=== PATIENT | male | born 1965 | race Caucasian/White ===

== ENCOUNTER 2018-07-06 13:09 | Emergency (ER) | payer BC ==
[2018-07-06] MEDS ORDERED: SODIUM CHLORIDE 0.9% 1,000 ML IV STA (13:24)
[2018-07-06 13:57] LABS: Appearance,Urine Clear (Clear); Bilirubin,Urine Negative (Negative); Blood,Urine Negative (Negative); Color,Urine Yellow; Glucose,Urine (UA) Negative (Negative); Ketones,Urine Negative (Negative); Leukocyte Esterase,Urine Negative (Negative); Nitrite,Urine Negative (Negative); PH, Urine 5.5 (5.0-8.0); Protein,Urine Negative (Negative); Specific Gravity,Urine 1.017 (1.001-1.035); Urobilinogen,Urine <2.0 mg/dL (<2.0)
[2018-07-06 14:00] LABS: Basophils # (A) 0.1 k/uL (0-0.2); Basophils % (A) 1 %; Eosinophils # (A) 0.2 k/uL (0-0.7); Eosinophils % (A) 2 %; HCT 45.7 % (39.0-53.0); HGB 15.4 gm/dL (13.0-17.5); Lymphocytes % (A) 14 %; MCH 30.2 pg (25.0-35.0); MCHC 33.7 g/dL (31.0-37.0); MCV 89.5 fL (80.0-100.0); Mean Platelet Volume 7.3; Monocytes # (A) 0.4 k/uL (0-1.0); Monocytes % (A) 5 %; Neutrophils # (A) 5.9 k/uL (1.3-7.7); Neutrophils % (A) 77 %; Platelet Count 246 k/uL (150-450); WBC 7.7 k/uL (3.8-10.6)
--- NOTE | 2018-07-06 14:02 | ED ---
General Adult HPI - General Chief complaint: Abdominal Pain Stated complaint: diverticulitis Time Seen by Provider: 07/06/18 13:24 Source: patient, RN notes reviewed, old records reviewed Mode of arrival: ambulatory Limitations: no limitations - History of Present Illness Initial comments: 53-year-old male patient past medical history of diverticulitis presents to ED with abdominal discomfort that he states feels similar to his diverticulitis of the past. Patient reports that he has symptoms. As well as left lower quadrant abdominal discomfort been going on for approximately one week. Patient denies any nausea vomiting but does report some diarrhea. Patient denies any other complaints present chest pain shortness of breath fevers chills dysuria. Systemic: Pt denies fatigue, myalgia, fever/chills, rash. Pt denies weakness, night sweats, weight loss. Neuro: Pt denies headache, visual disturbances, syncope or pre-syncope. HEENT: Pt denies ocular discharge or irritation, otalgia, rhinorrhea, pharyngitis or notable lymphadenopathy. Cardiopulmonary: Pt denies chest pain, SOB, heart palpitations, dyspnea on exertion. Abdominal/GI: Pt denies n/v. : Pt denies dysuria, burning w/ urination, frequency/urgency. Denies new onset urinary or bowel incontinence. MSK: Pt denies myalgia, loss of strength or function in extremities. Neuro: Pt denies new onset weakness, paresthesias. - Related Data Home Medications Medication Instructions Recorded Confirmed Multivitamin [Multivitamins Adult 1 tab PO DAILY 10/28/07/06/18 Gummies] Turmeric Root Extract [Turmeric] 500 mg PO DAILY 07/06/18 07/06/18 Previous Rx's Medication Instructions Recorded Amoxicillin/Potassium Clav 1 each PO Q12HR 14 Days #28 tab 07/06/18 [Augmentin 875-125 Tablet] Allergies Allergy/AdvReac Type Severity Reaction Status Date / Time lactose Allergy Unknown Verified 07/06/18 13:31 Review of Systems ROS Statement: Those systems with pertinent positive or pertinent negative responses have been documented in the HPI. ROS Other: All systems not noted in ROS Statement are negative. Past Medical History Past Medical History: No Reported History Additional Past Medical History / Comment(s): diverticulitis History of Any Multi-Drug Resistant Organisms: None Reported Past Surgical History: Hernia Repair Past Psychological History: No Psychological Hx Reported Smoking Status: Former smoker Past Alcohol Use History: Occasional Past Drug Use History: None Reported General Exam - General Exam Comments Initial Comments: Constitutional: NAD, AOX3, Pt has pleasant affect. HEENT: NC/AT, trachea midline, neck supple, no lymphadenopathy. Posterior pharynx non erythematous, without exudates. External ears appear normal, without discharge. Mucous membranes moist. Eyes PERRLA, EOM intact. There is no scleral icterus. No pallor noted. Cardiopulmonary: RRR, no murmurs, rubs or gallops, no JVD noted. Lungs CTAB in anterior and posterior irvin. No peripheral edema. Abdominal exam: Abdomen soft and non-distended. Abdomen non-tender to palpation in all 4 quadrants. No guarding or rigidity. Bowel sounds active in LLQ. No hepatosplenomegaly. No ecchymosis Neuro: CN II-XII grossly intact. No nuchal rigidity. MSK: No posterior calf tenderness bilaterally, homans sign negative bilaterally. Posterior tibialis and radial pulse +2 bilaterally. Sensation intact in upper and lower extremities. Full active ROM in upper and lower extremities, 5/5 stregnth. Limitations: no limitations Course Vital Signs 07/06/18 13:20 Temperature 98.2 F Pulse Rate 73 Respiratory 18 Rate Blood Pressure 105/81 O2 Sat by Pulse 98 Oximetry Medical Decision Making - Medical Decision Making 53-year-old male patient past medical history of diverticulitis presents to ED with abdominal discomfort that he states feels similar to his diverticulitis of the past. Patient reports that he has symptoms. As well as left lower quadrant abdominal discomfort been going on for approximately one week. Patient denies any nausea vomiting but does report some diarrhea. Patient denies any other complaints present chest pain shortness of breath fevers chills dysuria. Patient vital signs stable, afebrile. Physical exam displayed nontender abdomen. No guarding or rigidity. Laboratory investigations reveal nonpassive CBC, CMP. CT abdomen and pelvis displayed uncomplicated diverticulitis. Patient will be discharged with by mouth antibiotics and close outpatient follow-up with primary care provider. Patient follow with primary care provider tomorrow. Patient return to ER if condition worsens in any way. Case discussed with Dr. Suarez. - Lab Data Result diagrams: 07/06/18 13:30 07/06/18 13:30 Lab Results 07/06/18 07/06/18 07/06/18 Range/Units 13:30 13:30 13:30 WBC 7.7 (3.8-10.6) k/uL RBC 5.10 (4.30-5.90) m/uL Hgb 15.4 (13.0-17.5) gm/dL Hct 45.7 (39.0-53.0) % MCV 89.5 (80.0-100.0) fL MCH 30.2 (25.0-35.0) pg MCHC 33.7 (31.0-37.0) g/dL RDW 13.0 (11.5-15.5) % Plt Count 246 (150-450) k/uL Neutrophils % 77 % Lymphocytes % 14 % Monocytes % 5 % Eosinophils % 2 % Basophils % 1 % Neutrophils # 5.9 (1.3-7.7) k/uL Lymphocytes # 1.0 (1.0-4.8) k/uL Monocytes # 0.4 (0-1.0) k/uL Eosinophils # 0.2 (0-0.7) k/uL Basophils # 0.1 (0-0.2) k/uL Sodium 140 (137-145) mmol/L Potassium 4.4 (3.5-5.1) mmol/L Chloride 104 (98-107) mmol/L Carbon Dioxide 26 (22-30) mmol/L Anion Gap 10 mmol/L BUN 12 (9-20) mg/dL Creatinine 0.73 (0.66-1.25) mg/dL Est GFR (CKD-EPI)AfAm >90 (>60 ml/min/1.73 sqM) Est GFR (CKD-EPI)NonAf >90 (>60 ml/min/1.73 sqM) Glucose 69 L (74-99) mg/dL Plasma Lactic Acid Gilmer 1.2 (0.7-2.0) mmol/L Calcium 9.7 (8.4-10.2) mg/dL Total Bilirubin 0.7 (0.2-1.3) mg/dL AST 32 (17-59) U/L ALT 29 (21-72) U/L Alkaline Phosphatase 67 (38-126) U/L Total Protein 8.5 H (6.3-8.2) g/dL Albumin 5.1 H (3.5-5.0) g/dL Lipase 133 (23-300) U/L Urine Color Urine Appearance (Clear) Urine pH (5.0-8.0) Ur Specific Garrison (1.001-1.035) Urine Protein (Negative) Urine Glucose (UA) (Negative) Urine Ketones (Negative) Urine Blood (Negative) Urine Nitrite (Negative) Urine Bilirubin (Negative) Urine Urobilinogen (<2.0) mg/dL Ur Leukocyte Esterase (Negative) 07/06/18 Range/Units 13:30 WBC (3.8-10.6) k/uL RBC (4.30-5.90) m/uL Hgb (13.0-17.5) gm/dL Hct (39.0-53.0) % MCV (80.0-100.0) fL MCH (25.0-35.0) pg MCHC (31.0-37.0) g/dL RDW (11.5-15.5) % Plt Count (150-450) k/uL Neutrophils % % Lymphocytes % % Monocytes % % Eosinophils % % Basophils % % Neutrophils # (1.3-7.7) k/uL Lymphocytes # (1.0-4.8) k/uL Monocytes # (0-1.0) k/uL Eosinophils # (0-0.7) k/uL Basophils # (0-0.2) k/uL Sodium (137-145) mmol/L Potassium (3.5-5.1) mmol/L Chloride (98-107) mmol/L Carbon Dioxide (22-30) mmol/L Anion Gap mmol/L BUN (9-20) mg/dL Creatinine (0.66-1.25) mg/dL Est GFR (CKD-EPI)AfAm (>60 ml/min/1.73 sqM) Est GFR (CKD-EPI)NonAf (>60 ml/min/1.73 sqM) Glucose (74-99) mg/dL Plasma Lactic Acid Gilmer (0.7-2.0) mmol/L Calcium (8.4-10.2) mg/dL Total Bilirubin (0.2-1.3) mg/dL AST (17-59) U/L ALT (21-72) U/L Alkaline Phosphatase (38-126) U/L Total Protein (6.3-8.2) g/dL Albumin (3.5-5.0) g/dL Lipase (23-300) U/L Urine Color Yellow Urine Appearance Clear (Clear) Urine pH 5.5 (5.0-8.0) Ur Specific Garrison 1.017 (1.001-1.035) Urine Protein Negative (Negative) Urine Glucose (UA) Negative (Negative) Urine Ketones Negative (Negative) Urine Blood Negative (Negative) Urine Nitrite Negative (Negative) Urine Bilirubin Negative (Negative) Urine Urobilinogen <2.0 (<2.0) mg/dL Ur Leukocyte Esterase Negative (Negative) Disposition Clinical Impression: Diverticulitis Disposition: HOME SELF-CARE Condition: Stable Instructions (If sedation given, give patient instructions): Diverticulitis (ED) Additional Instructions: Patient to adhere to previously discussed treatment plan and will take medication(s) as directed. Patient to follow up with PCP in 1-2 days. Patient to return to ED if symptoms do not improve. Please take antibiotics as prescribed. Follow up with primary care provider tomorrow. Return to ER if condition worsens. Prescriptions: Amoxicillin/Potassium Clav [Augmentin 875-125 Tablet] 1 each PO Q12HR 14 Days #28 tab Is patient prescribed a controlled substance at d/c from ED?: No Referrals: Greta Arizmendi MD [Primary Care Provider] - 1-2 days
[2018-07-06 14:06] LABS: ALT 29 U/L (21-72); AST 32 U/L (17-59); Albumin 5.1 g/dL (3.5-5.0); Alkaline Phosphatase 67 U/L (38-126); Anion Gap 10 mmol/L; Blood Urea Nitrogen 12 mg/dL (9-20); Calcium 9.7 mg/dL (8.4-10.2); Carbon Dioxide 26 mmol/L (22-30); Chloride 104 mmol/L (98-107); Glucose 69 mg/dL (74-99); Lipase 133 U/L (23-300); Sodium 140 mmol/L (137-145); Total Bilirubin 0.7 mg/dL (0.2-1.3); Total Protein 8.5 g/dL (6.3-8.2)
[2018-07-06 14:16] LABS: Potassium 4.4 mmol/L (3.5-5.1)
--- NOTE | 2018-07-06 14:29 | CT ---
EXAMINATION TYPE: CT abdomen pelvis w con DATE OF EXAM: 07/06/2018 COMPARISON: 10/29/2015 HISTORY: 53-year-old male lower pelvic pain and pressure from bellybutton down to the groin, abdomina l pain TECHNIQUE: Contiguous axial scanning of the abdomen and pelvis following administration of 100 ml Iso rigo 300 IV contrast. Delayed images through the kidneys and coronal/sagittal reconstructions perform ed. CT DLP: 1052.7 mGycm Automated exposure control for dose reduction was used. FINDINGS: Heart normal size without pericardial effusion. Lung bases clear without pleural effusion. Small hiatal hernia. No focal liver lesion or biliary ductal dilatation. Portal venous system is patent. There is layering gravel within the gallbladder. No abnormal gallbladder distention. Adrenal glands, kidneys, spleen, pancreas appear within normal limits. No dilated small bowel, free fluid, or free air. No mesenteric or retroperitoneal lymphadenopathy. Some scattered prominent mid and left-sided mesenteric lymph nodes measuring up to 9 mm nonspecific, likely reactive/post inflammatory. Normal appendix. Cecum is high riding. Mild to moderate stool burden. Left hemicolon diverticulosis. Moderate circumferential wall thickening of the mid to distal sigmoid colon where most extensive dive rticular changes present. Surrounding pericolonic inflammatory fat stranding. Surgical material along the right inguinal region may correspond to prior hernia repair. Partial distention of the bladder. Central prostatic calcifications. Pelvic phleboliths. No abnormal fluid collection in the pelvis or pelvic lymphadenopathy. Bones: Moderate multilevel degenerative disc disease throughout the lumbar spine. IMPRESSION: 1. LEFT-SIDED COLONIC DIVERTICULOSIS MOST EXTENSIVE WITHIN THE SIGMOID COLON WITH FINDINGS COMPATIBLE WITH ACUTE DIVERTICULITIS ALONG THE MID TO DISTAL SIGMOID. THERE IS MILD TO MODERATE SURROUNDING INF LAMMATION WITHOUT ABSCESS OR FREE AIR. DIRECT VISUALIZATION AFTER SUCCESSFUL TREATMENT. 2. SMALL HIATAL HERNIA.
[2018-07-06 15:08] VITALS: BP 126/89; PULSE 62; RESP 16; TEMP 97.5
== END 2018-07-06 15:05 | disposition home or self-care (01) ==
LOC: EC 13:09
DX: K57.92 Diverticulitis of intestine, part unspecified, without perforation or abscess without bleeding (principal); Z87.891 Personal history of nicotine dependence; Z79.899 Other long term (current) drug therapy; Z91.011 Allergy to milk products
CPT/HCPCS: 99284; 96360; 36415; 80053; 83605; 83690; 85025; 81003; 74177; Q9967

== ENCOUNTER 2020-02-23 11:49 | Emergency (ER) | payer BC ==
[2020-02-23] MEDS ORDERED: KETOROLAC 15 MG/ML 1 ML VIAL IVP STA (12:08)
[2020-02-23] MEDS ORDERED: DIPH,PERTUS(ACELL)TETVAC-LF 0.5 ML VIAL IM ONE (12:08)
[2020-02-23] MEDS ORDERED: SODIUM CHLORIDE 0.9% 1,000 ML IV ONE (12:08)
[2020-02-23] MEDS ORDERED: HYDROmorphone 0.5 MG/0.5 ML SYRINGE IVP STA (12:08)
[2020-02-23 12:28] LABS: Basophils % (A) 0 %; Eosinophils # (A) 0.2 k/uL (0-0.7); Eosinophils % (A) 2 %; HCT 44.4 % (39.0-53.0); HGB 14.5 gm/dL (13.0-17.5); Lymphocytes # (A) 1.4 k/uL (1.0-4.8); Lymphocytes % (A) 22 %; MCHC 32.7 g/dL (31.0-37.0); MCV 88.7 fL (80.0-100.0); Monocytes # (A) 0.4 k/uL (0-1.0); Monocytes % (A) 6 %; Neutrophils # (A) 4.5 k/uL (1.3-7.7); Neutrophils % (A) 68 %; Platelet Count 330 k/uL (150-450); RBC 5.01 m/uL (4.30-5.90); RDW 13.3 % (11.5-15.5); WBC 6.6 k/uL (3.8-10.6)
[2020-02-23 12:36] LABS: Albumin 4.7 g/dL (3.5-5.0); Calcium 9.4 mg/dL (8.4-10.2); Potassium 4.1 mmol/L (3.5-5.1); Total Bilirubin 0.7 mg/dL (0.2-1.3); Total Protein 7.8 g/dL (6.3-8.2)
[2020-02-23 12:37] LABS: Prothrombin Time 10.5 sec (9.0-12.0)
--- NOTE | 2020-02-23 13:14 | ED ---
General Adult HPI - General Chief complaint: Trauma Stated complaint: Fall 5-10 ft, Elbow pain Time Seen by Provider: 02/23/20 12:04 Source: patient, RN notes reviewed, old records reviewed Mode of arrival: wheelchair Limitations: no limitations - History of Present Illness Initial comments: 55-year-old male presents status post fall with chief complaint of right elbow pain. Patient fell from a ladder, approximately 5-10 feet. He denies head or neck trauma. Denies loss consciousness. He complains predominantly of right elbow pain with an associated abrasion. He also has some right hip pain and low back pain associated with the fall. This occurred just prior to arrival. He is otherwise healthy, not on anticoagulation. No abdominal pain. No chest pain. - Related Data Home Medications Medication Instructions Recorded Confirmed Multivitamin [Multivitamins Adult 1 tab PO DAILY 10/29/15 02/23/20 Gummies] Allergies Allergy/AdvReac Type Severity Reaction Status Date / Time lactose Allergy Unknown Verified 02/23/20 13:29 Review of Systems ROS Statement: Those systems with pertinent positive or pertinent negative responses have been documented in the HPI. ROS Other: All systems not noted in ROS Statement are negative. Past Medical History Past Medical History: No Reported History Additional Past Medical History / Comment(s): diverticulitis History of Any Multi-Drug Resistant Organisms: None Reported Past Surgical History: Hernia Repair Past Psychological History: No Psychological Hx Reported Smoking Status: Never smoker Past Alcohol Use History: Occasional Past Drug Use History: None Reported General Exam Limitations: no limitations General appearance: alert, in no apparent distress Head exam: Present: atraumatic, normocephalic Eye exam: Present: normal appearance, PERRL ENT exam: Present: normal exam Neck exam: Present: normal inspection. Absent: tenderness, meningismus Respiratory exam: Present: normal lung sounds bilaterally. Absent: respiratory distress, wheezes, rales Cardiovascular Exam: Present: regular rate, normal rhythm GI/Abdominal exam: Present: soft. Absent: distended, tenderness, guarding, rebound Extremities exam: Present: other (Deformity to the right elbow with abrasion. No laceration. Distal pulses intact. Sensation exam not possible given the patient's severity of pain.) Back exam: Present: normal inspection, full ROM. Absent: tenderness, paraspinal tenderness, vertebral tenderness Neurological exam: Present: alert, oriented X3, CN II-XII intact Psychiatric exam: Present: normal affect, normal mood Skin exam: Present: warm, dry, abrasion (Right elbow) Course Vital Signs 02/23/20 02/23/20 02/23/20 11:53 12:11 12:33 Temperature 98.9 F Pulse Rate 53 L 60 Respiratory 18 18 Rate Blood Pressure 96/74 107/75 115/78 O2 Sat by Pulse 99 100 Oximetry - Reevaluation(s) Reevaluation #1: 02/23/20 [id number] Case discussed with Mattie villatoro for orthopedics, recommends consult with [facility]. Reevaluation #2: 02/23/20 14:[address] Garcia who does recommend transfer for urgent orthopedic surgical evaluation. Recommends posterior splint. 02/23/20 14:24 Procedures - Orthopedic Splinting/Casting Injury #1 Side: right Upper Extremity Injury Location: elbow Upper Extremity Immobilizer: posterior splint Additional Comments: Patient has normal sensation, normal distal pulses, normal motor exam. Medical Decision Making - Medical Decision Making 55-year-old male with fall from ladder with chief complaint of right elbow pain and right hip pain. X-rays of the elbow show a displaced fracture through the proximal ulna. This is closed. There is no overlying abrasion but no laceration. Additionally there is superior pubic rami fracture on the right. Patient is hemodynamically stable. I discussed case both with Mattie villatoro for orthopedics at this institution and Dr. Garcia at [facility]. Ultimately the patient will be transferred for urgent orthopedic evaluation. Case discussed with the ER physician Dr. Johnson at [facility] - Lab Data Result diagrams: 02/23/20 12:13 02/23/20 12:13 Lab Results 02/23/20 02/23/20 02/23/20 Range/Units 12:13 12:13 12:13 WBC 6.6 (3.8-10.6) k/uL RBC 5.01 (4.30-5.90) m/uL Hgb 14.5 (13.0-17.5) gm/dL Hct 44.4 (39.0-53.0) % MCV 88.7 (80.0-100.0) fL MCH 29.0 (25.0-35.0) pg MCHC 32.7 (31.0-37.0) g/dL RDW 13.3 (11.5-15.5) % Plt Count 330 (150-450) k/uL MPV 7.0 Neutrophils % 68 % Lymphocytes % 22 % Monocytes % 6 % Eosinophils % 2 % Basophils % 0 % Neutrophils # 4.5 (1.3-7.7) k/uL Lymphocytes # 1.4 (1.0-4.8) k/uL Monocytes # 0.4 (0-1.0) k/uL Eosinophils # 0.2 (0-0.7) k/uL Basophils # 0.0 (0-0.2) k/uL PT 10.5 (9.0-12.0) sec INR 1.0 (<1.2) APTT 22.0 (22.0-30.0) sec Sodium 137 (137-145) mmol/L Potassium 4.1 (3.5-5.1) mmol/L Chloride 104 (98-107) mmol/L Carbon Dioxide 23 (22-30) mmol/L Anion Gap 10 mmol/L BUN 10 (9-20) mg/dL Creatinine 1.09 (0.66-1.25) mg/dL Est GFR (CKD-EPI)AfAm 89 (>60 ml/min/1.73 sqM) Est GFR (CKD-EPI)NonAf 77 (>60 ml/min/1.73 sqM) Glucose 143 H (74-99) mg/dL Calcium 9.4 (8.4-10.2) mg/dL Total Bilirubin 0.7 (0.2-1.3) mg/dL AST 30 (17-59) U/L ALT 24 (4-49) U/L Alkaline Phosphatase 75 (38-126) U/L Total Protein 7.8 (6.3-8.2) g/dL Albumin 4.7 (3.5-5.0) g/dL Disposition Clinical Impression: Ulnar fracture, Fracture of superior pubic ramus Disposition: OTHER INSTITUTION NOT DEFINED Condition: Stable Is patient prescribed a controlled substance at d/c from ED?: No Referrals: Greta Arizmendi MD [Primary Care Provider] - 1-2 days Time of Disposition: 14:19 - Out of Hospital Transfer - Req. Specs Out of Hospital Transfer - Requested Specifics: Other Emergency Center (Transferred to [facility])
--- NOTE | 2020-02-23 13:43 | XR ---
EXAMINATION TYPE: XR elbow complete RT DATE OF EXAM: 02/23/2020 COMPARISON: NONE HISTORY: Pain FINDINGS: Three views of the elbow demonstrate displaced fracture of the proximal ulna with significant displac ement. Soft tissue edema noted. Remaining osseous structures intact. IMPRESSION: 1. Displaced proximal ulnar fracture.
--- NOTE | 2020-02-23 13:44 | XR ---
EXAM TYPE: LUMBAR SPINE X RAY SERIES COMPARISON: NONE HISTORY: Pain TECHNIQUE: 3 views are submitted. FINDINGS: Alignment is anatomic. The pedicles are intact. The transverse processes are intact. There is mult ilevel hypertrophic and degenerative disc disease with facet arthropathy. Retrolisthesis of L3 on L4. Resolution somewhat limited. No obvious compression deformities. Pedicles grossly intact. Surgical c lips in the pelvis are noted. SI joints are symmetric. IMPRESSION: 1. Multilevel degenerative disc disease.
--- NOTE | 2020-02-23 13:52 | XR ---
EXAMINATION TYPE: XR Hip RT and AP Pelvis DATE OF EXAM: 02/23/2020 COMPARISON: NONE HISTORY: Pain TECHNIQUE: A single AP view of the pelvis is obtained. Two views of the right hip are obtained. FINDINGS: There is slight deformity of the right superior pubic ramus. The hip and sacroiliac joint s appear symmetric and unremarkable. The overlying soft tissue appears unremarkable. Two views of right hip obtained. No focal lytic or sclerotic lesion seen in the proximal right femur. The overlying soft tissue is unremarkable. Mild hypertrophic change of the abdomen. Postoperative changes are seen in the pelvis. IMPRESSION: IMPRESSION: 1. Findings demonstrating a slight deformity involving the right superior pubic ramus. Recommend CT s can of the pelvis.
[2020-02-23] MEDS ORDERED: HYDROmorphone 1 MG/ML 1 ML SYRINGE IVP STA (15:10)
[2020-02-23 15:49] VITALS: BP 116/78; PULSE 55; RESP 20; TEMP 98.6
== END 2020-02-23 15:48 | disposition other institution (70) ==
LOC: EC 11:49
DX: S52.001A Unspecified fracture of upper end of right ulna, initial encounter for closed fracture (principal); S32.511A Fracture of superior rim of right pubis, initial encounter for closed fracture; Z23 Encounter for immunization; W11.XXXA Fall on and from ladder, initial encounter; Z91.048 Other nonmedicinal substance allergy status
CPT/HCPCS: 99285; 90471; 96374; 96375; 96376; 96361; 29125; 36415; 80053; 85025; 85610; 85730; 72100; 73502; 73080; 90715; J1170 ×2; J1885

== ENCOUNTER 2020-08-27 11:10 | Emergency (ER) | payer BC ==
[2020-08-27] MEDS ORDERED: SODIUM CHLORIDE 0.9% 1,000 ML IV STA (11:53)
[2020-08-27 12:22] LABS: Basophils % (A) 0 %; Eosinophils # (A) 0.1 k/uL (0-0.7); Eosinophils % (A) 1 %; HCT 42.2 % (39.0-53.0); HGB 13.8 gm/dL (13.0-17.5); Lymphocytes # (A) 0.9 k/uL (1.0-4.8); Lymphocytes % (A) 13 %; MCH 28.6 pg (25.0-35.0); MCHC 32.8 g/dL (31.0-37.0); MCV 87.3 fL (80.0-100.0); Mean Platelet Volume 7.5; Monocytes # (A) 0.4 k/uL (0-1.0); Monocytes % (A) 6 %; Neutrophils # (A) 5.2 k/uL (1.3-7.7); Neutrophils % (A) 79 %; Platelet Count 226 k/uL (150-450); RBC 4.83 m/uL (4.30-5.90); RDW 13.6 % (11.5-15.5); WBC 6.6 k/uL (3.8-10.6)
[2020-08-27 12:28] LABS: ALT 22 U/L (4-49); AST 28 U/L (17-59); African American GFR (CKD) >90 (>60 ml/min/1.73 sqM); Albumin 4.3 g/dL (3.5-5.0); Alkaline Phosphatase 80 U/L (38-126); Anion Gap 9 mmol/L; Blood Urea Nitrogen 14 mg/dL (9-20); Carbon Dioxide 23 mmol/L (22-30); Chloride 106 mmol/L (98-107); Glucose 89 mg/dL (74-99); Lipase 109 U/L (23-300); Non-African American GFR(CKD) >90 (>60 ml/min/1.73 sqM); Potassium 4.1 mmol/L (3.5-5.1); Sodium 138 mmol/L (137-145); Total Protein 7.1 g/dL (6.3-8.2)
--- NOTE | 2020-08-27 12:28 | ED ---
General Adult HPI - General Chief complaint: Abdominal Pain Stated complaint: diverticulitis Time Seen by Provider: 08/27/20 11:53 Source: patient Mode of arrival: ambulatory Limitations: no limitations - History of Present Illness Initial comments: Dictation was produced using Key[employer] dictation software. please excuse any grammatical, word or spelling errors. Chief Complaint: 55-year-old male with frequent recurrence of diverticulitis presents with suprapubic abdominal pain. History of Present Illness: 5-year-old male he does not have any significant comorbidities. He has had diverticulitis on multiple occasions in the past. Patient states that 2 weeks ago he just came off of diverticulitis antibiotics. He states his symptoms cleared up from then however over the last couple days ago his symptoms came back. She states he was on antibiotics for approximately one month. Patient with diarrhea this time though some bloody. Denies any constitutional symptoms. States that his abdominal pain is to the suprapubic area. Denies any radiation of symptoms. Also has feelings as though his hiatal hernia symptoms are acting up. He states that he is having some trouble swallowing. The ROS documented in this emergency department record has been reviewed and confirmed by me. Those systems with pertinent positive or negative responses have been documented in the HPI. All other systems are other negative and/or noncontributory. PHYSICAL EXAM: General Impression: Alert and oriented x3, not in acute distress HEENT: Normocephalic atraumatic, extra-ocular movements intact, pupils equal and reactive to light bilaterally, mucous membranes moist. Cardiovascular: Heart regular rate and rhythm Chest: Able to complete full sentences, no retractions, no tachypnea Abdomen: abdomen soft, tenderness to palpation in the suprapubic area, non- distended, no organomegaly Musculoskeletal: Pulses present and equal in all extremities, no peripheral edema Motor: no focal deficits noted Neurological: CN II-XII grossly intact, no focal motor or sensory deficits noted Skin: Intact with no visualized rashes Psych: Normal affect and mood ED course: 55-year-old male with frequent recurrent history of diverticulitis. He just completed a course of antibiotics to treat diverticulitis. Shortly after he was symptom-free however his pain really return. Vital Signs upon arrival are within acceptable limits. Laboratory evaluation obtained. CBC, metabolic panel is unremarkable. Computed tomography scan of the abdomen and pelvis shows acute diverticulitis. Clinical presentation consistent with recurrent diverticulitis. Patient reevaluated bedside at 1:40 PM found to be stable medical condition. His pain is controlled. He is able to tolerate oral intake. Patient be prescribed Augmentin for 14 days. Advised follow-up with PCP. - Related Data Home Medications Medication Instructions Recorded Confirmed Multivitamin [Multivitamins Adult 1 tab PO DAILY 10/29/15 02/23/20 Gummies] Previous Rx's Medication Instructions Recorded Amoxic-Pot Clav 875-125Mg 1 tab PO Q8H 14 Days #42 tab 08/27/20 [Augmentin 875-125] Allergies Allergy/AdvReac Type Severity Reaction Status Date / Time lactose Allergy Unknown Verified 08/27/20 11:21 Review of Systems ROS Statement: Those systems with pertinent positive or pertinent negative responses have been documented in the HPI. ROS Other: All systems not noted in ROS Statement are negative. Past Medical History Past Medical History: No Reported History Additional Past Medical History / Comment(s): diverticulitis History of Any Multi-Drug Resistant Organisms: None Reported Past Surgical History: Hernia Repair Additional Past Surgical History / Comment(s): elbow Past Psychological History: No Psychological Hx Reported Smoking Status: Never smoker Past Alcohol Use History: Occasional Past Drug Use History: None Reported General Exam Limitations: no limitations Course Vital Signs 08/27/20 08/27/20 11:18 13:01 Temperature 98.4 F Pulse Rate 100 79 Respiratory 18 19 Rate Blood Pressure 122/85 129/89 O2 Sat by Pulse 97 98 Oximetry Medical Decision Making - Lab Data Result diagrams: 08/27/20 12:09 08/27/20 12:09 Lab Results 08/27/20 08/27/20 Range/Units 12:09 12:09 WBC 6.6 (3.8-10.6) k/uL RBC 4.83 (4.30-5.90) m/uL Hgb 13.8 (13.0-17.5) gm/dL Hct 42.2 (39.0-53.0) % MCV 87.3 (80.0-100.0) fL MCH 28.6 (25.0-35.0) pg MCHC 32.8 (31.0-37.0) g/dL RDW 13.6 (11.5-15.5) % Plt Count 226 (150-450) k/uL MPV 7.5 Neutrophils % 79 % Lymphocytes % 13 % Monocytes % 6 % Eosinophils % 1 % Basophils % 0 % Neutrophils # 5.2 (1.3-7.7) k/uL Lymphocytes # 0.9 L (1.0-4.8) k/uL Monocytes # 0.4 (0-1.0) k/uL Eosinophils # 0.1 (0-0.7) k/uL Basophils # 0.0 (0-0.2) k/uL Sodium 138 (137-145) mmol/L Potassium 4.1 (3.5-5.1) mmol/L Chloride 106 (98-107) mmol/L Carbon Dioxide 23 (22-30) mmol/L Anion Gap 9 mmol/L BUN 14 (9-20) mg/dL Creatinine 0.80 (0.66-1.25) mg/dL Est GFR (CKD-EPI)AfAm >90 (>60 ml/min/1.73 sqM) Est GFR (CKD-EPI)NonAf >90 (>60 ml/min/1.73 sqM) Glucose 89 (74-99) mg/dL Calcium 9.0 (8.4-10.2) mg/dL Total Bilirubin 1.0 (0.2-1.3) mg/dL AST 28 (17-59) U/L ALT 22 (4-49) U/L Alkaline Phosphatase 80 (38-126) U/L Total Protein 7.1 (6.3-8.2) g/dL Albumin 4.3 (3.5-5.0) g/dL Lipase 109 (23-300) U/L Disposition Clinical Impression: Diverticulitis Disposition: HOME SELF-CARE Condition: Good Instructions (If sedation given, give patient instructions): Diverticulitis (ED) Prescriptions: Amoxic-Pot Clav 875-125Mg [Augmentin 875-125] 1 tab PO Q8H 14 Days #42 tab Is patient prescribed a controlled substance at d/c from ED?: No Referrals: Greta Arizmendi MD [Primary Care Provider] - 1-2 days
[2020-08-27 13:02] VITALS: PULSE 79
--- NOTE | 2020-08-27 13:16 | CT ---
EXAMINATION TYPE: CT abdomen pelvis w con DATE OF EXAM: 08/27/2020 COMPARISON: 07/06/2018 HISTORY: 55-year-old male bilateral pelvic pain, epigastric pain. Suspect diverticulitis. TECHNIQUE: Contiguous axial scanning of the abdomen and pelvis following administration of 100 ml Iso rigo 300 IV contrast. Delayed images through the kidneys and coronal/sagittal reconstructions perform ed. CT DLP: 1281.2 mGycm Automated exposure control for dose reduction was used. FINDINGS: Heart normal size without pericardial effusion. Some mild dependent atelectasis at the posterior lung bases without pleural effusion. Small hiatal hernia. No focal liver lesion or biliary ductal dilatation. Portal venous system is patent. Some layering gravel in the gallbladder. No abnormal gallbladder distention. Adrenal glands, kidneys, spleen, and pancreas within normal limits. No dilated small bowel, free fluid, or free air. Scattered nonenlarged mesenteric lymph nodes in the mid and lower abdomen. Stable simple cyst and right lower quadrant right inguinal mesh repair. Normal appendix. Left-sided colonic diverticulosis, extensive in the sigmoid colon now with moderate pericolonic fat stranding along the mid sigmoid colon and corresponding circumferential wall thickeni ng. Trabeculated appearance to the bladder with the right posterior bladder wall diverticulum measuring 0 .3 cm. Prostate gland measures 4.2 cm wide. Central calcification and is unchanged. Left-sided pelvic phleboliths. No abnormal fluid collection the pelvis or pelvic lymphadenopathy. Bones: Old right inferior pubic ramus fracture deformity. Mild to moderate degenerative change of the hips. Moderate to advanced degenerative disc disease L3-L4 and L4-L5. Hypertrophic facet arthropathy with grade 1 retrolisthesis at these levels. IMPRESSION: 1. LEFT-SIDED COLONIC DIVERTICULOSIS, GREATEST IN THE SIGMOID COLON. EXAM IS POSITIVE FOR ACUTE DIVER TICULITIS ALONG THE MID SIGMOID COLON WITH MODERATE INFLAMMATION. RECOMMEND DIRECT VISUALIZATION AFTE R SUCCESSFUL TREATMENT. NO ABSCESS OR FREE AIR. 2. SMALL HIATAL HERNIA. 3. TRABECULATED BLADDER WALL SUGGESTS CHRONIC BLADDER OUTLET OBSTRUCTION.
[2020-08-27] MEDS ORDERED: ONDANSETRON 4 MG ODT STARTER PACK 2 TAB BTL PO STA (13:40)
[2020-08-27 14:20] VITALS: BP 127/94; RESP 18; TEMP 98
== END 2020-08-27 14:54 | disposition home or self-care (01) ==
LOC: EC 11:10
DX: K57.32 Diverticulitis of large intestine without perforation or abscess without bleeding (principal); R13.10 Dysphagia, unspecified
CPT/HCPCS: 36415; 80053; 83690; 85025; 74177; 99284; S0119; Q9967

== ENCOUNTER 2022-09-03 14:17 | Emergency (ER) | payer BC ==
[2022-09-03 14:27] VITALS: TEMP 98.6
[2022-09-03] MEDS ORDERED: SODIUM CHLORIDE 0.9% 1,000 ML IV ONE (15:42)
[2022-09-03 15:59] LABS: Basophils % (A) 0 %; Eosinophils # (A) 0.1 k/uL (0-0.7); Eosinophils % (A) 2 %; HCT 41.5 % (39.0-53.0); HGB 13.6 gm/dL (13.0-17.5); Lymphocytes # (A) 1.2 k/uL (1.0-4.8); Lymphocytes % (A) 22 %; MCH 28.5 pg (25.0-35.0); MCHC 32.7 g/dL (31.0-37.0); MCV 87.1 fL (80.0-100.0); Mean Platelet Volume 7.7; Monocytes # (A) 0.5 k/uL (0-1.0); Monocytes % (A) 8 %; Neutrophils # (A) 3.7 k/uL (1.3-7.7); Neutrophils % (A) 66 %; Platelet Count 240 k/uL (150-450); RBC 4.77 m/uL (4.30-5.90); WBC 5.6 k/uL (3.8-10.6)
[2022-09-03 16:15] LABS: ALT 16 U/L (4-49); AST 22 U/L (17-59); African American GFR (CKD) >90 (>60 ml/min/1.73 sqM); Albumin 4.1 g/dL (3.5-5.0); Alkaline Phosphatase 78 U/L (38-126); Amylase 71 U/L (30-110); Anion Gap 9 mmol/L; Blood Urea Nitrogen 12 mg/dL (9-20); Calcium 8.8 mg/dL (8.4-10.2); Carbon Dioxide 24 mmol/L (22-30); Chloride 103 mmol/L (98-107); Glucose 74 mg/dL (74-99); Lipase 133 U/L (23-300); Non-African American GFR(CKD) >90 (>60 ml/min/1.73 sqM); Potassium 4.1 mmol/L (3.5-5.1); Sodium 136 mmol/L (137-145); Total Bilirubin 0.6 mg/dL (0.2-1.3); Total Protein 7.1 g/dL (6.3-8.2)
--- NOTE | 2022-09-03 16:31 | CT ---
EXAMINATION TYPE: CT abdomen pelvis w con CT DLP: 1384.7 mGycm, Automated exposure control for dose reduction was used. DATE OF EXAM: 09/03/2022 4:13 PM COMPARISON: CT abdomen pelvis most recent from 08/27/2020. CLINICAL INDICATION:Male, 57 years old with history of abd pain; abdominal pain, hx of diverticulitis . TECHNIQUE: Standard CT of the abdomen and pelvis following the administration of 100 cc of Isovue 3 00 IV contrast material. Coronal and sagittal reformats were performed. FINDINGS: LOWER CHEST: Unremarkable ABDOMEN LIVER: Diffusely hypoattenuating parenchyma. GALLBLADDER AND BILE DUCTS: Unremarkable. PANCREAS: Unremarkable. SPLEEN: Unremarkable. ADRENAL GLANDS: Unremarkable. KIDNEYS AND URETERS: No evidence of hydronephrosis or renal calculus. The kidneys enhance symmetrical ly. Contrast is demonstrated within both collecting systems on the delayed phase. PELVIS BLADDER: Mild trabeculation urinary bladder redemonstrated with redemonstration of a small right post erior bladder diverticulum REPRODUCTIVE: Coarse calcifications of the prostate gland are identified. ABDOMEN & PELVIS STOMACH AND BOWEL: Small hiatal hernia, duodenum is unremarkable. No evidence of bowel obstruction. T he appendix is within normal limits. Sigmoid and descending colonic diverticulosis. There is circumfe rential wall thickening of the sigmoid colon demonstrated with some subtle surrounding fat stranding. No pericolonic abscess. No obvious fistula. PERITONEUM: No evidence of pneumoperitoneum or free fluid. Postsurgical clips within the right pelvis redemonstrated from inguinal hernia repair with mesh. VASCULATURE: Mild atherosclerotic calcifications are present throughout the abdominal aorta and its b ranches. No evidence of aortic aneurysm. MUSCULOSKELETAL: No acute osseous abnormalities. Mild disc degeneration changes are present throughou t the thoracolumbar spine. Mild retrolisthesis of L3 on L4. Old right inferior pubic rami fracture. LYMPH NODES: No gross evidence for lymphadenopathy. SOFT TISSUE/ABDOMINAL WALL: Patulous left inguinal fat filled ring. IMPRESSION: Uncomplicated acute sigmoid diverticulitis.
--- NOTE | 2022-09-03 16:56 | ED ---
General Adult HPI - General Chief complaint: Abdominal Pain Stated complaint: abd pain Time Seen by Provider: 09/03/22 15:05 Source: patient, RN notes reviewed Mode of arrival: ambulatory Limitations: no limitations - History of Present Illness Initial comments: 57-year-old male presents to the emergency department chief complaint of left lower quadrant pain 2 days. He states the pain is nonradiating with no known aggravating or alleviating factors. He reports changes in his bowel habits with increased constipation. He states that he has not been taking anything for pain at home. He does not want anything for pain at this time. He states that he has had flares of diverticulitis in the past and this feels similar. He has not had any recent abdominal imaging. Denies fever, chills. Denies nausea, vomiting. Denies blood in the stool. - Related Data Home Medications Medication Instructions Recorded Confirmed Albuterol Inhaler [Ventolin Hfa 2 puff INHALATION RT-QID PRN 08/27/20 08/27/20 Inhaler] diphenhydrAMINE [Benadryl] 25 mg PO Q6H PRN 08/27/20 08/27/20 Previous Rx's Medication Instructions Recorded Amoxic-Pot Clav 875-125Mg 1 tab PO Q8H 14 Days #42 tab 08/27/20 [Augmentin 875-125] Amoxic-Pot Clav 875-125Mg 1 tab PO Q8HR #15 tab 09/03/22 [Augmentin 875-125] Allergies Allergy/AdvReac Type Severity Reaction Status Date / Time lactose Allergy Unknown Verified 09/03/22 14:27 Review of Systems ROS Statement: Those systems with pertinent positive or pertinent negative responses have been documented in the HPI. ROS Other: All systems not noted in ROS Statement are negative. Past Medical History Past Medical History: No Reported History Additional Past Medical History / Comment(s): diverticulitis History of Any Multi-Drug Resistant Organisms: None Reported Past Surgical History: Hernia Repair Additional Past Surgical History / Comment(s): elbow Past Psychological History: No Psychological Hx Reported Smoking Status: Never smoker Past Alcohol Use History: Occasional Past Drug Use History: None Reported General Exam Limitations: no limitations General appearance: alert, in no apparent distress Head exam: Present: atraumatic, normocephalic, normal inspection Eye exam: Present: normal appearance ENT exam: Present: normal exam, mucous membranes moist Neck exam: Present: normal inspection. Absent: tenderness, meningismus, ly mphadenopathy Respiratory exam: Present: normal lung sounds bilaterally. Absent: respiratory distress, wheezes, rales, rhonchi, stridor Cardiovascular Exam: Present: regular rate, normal rhythm, normal heart sounds. Absent: systolic murmur, diastolic murmur, rubs, gallop, clicks GI/Abdominal exam: Present: soft, tenderness (LLQ), normal bowel sounds Extremities exam: Present: normal inspection, full ROM, normal capillary refill. Absent: tenderness, pedal edema, joint swelling, calf tenderness Back exam: Present: normal inspection Neurological exam: Present: alert, oriented X3 Psychiatric exam: Present: normal affect, normal mood Skin exam: Present: warm, dry, intact, normal color. Absent: rash Course Vital Signs 09/03/22 14:24 Temperature 98.6 F Pulse Rate 92 Respiratory 16 Rate Blood Pressure 130/97 O2 Sat by Pulse 98 Oximetry Medical Decision Making - Medical Decision Making Was pt. sent in by a medical professional or institution (, PA, OVEN ROASTER, urgent care, hospital, or skilled nursing...) When possible be specific @ -No Did you speak to anyone other than the patient for history (EMS, parent, family, police, friend...)? What history was obtained from this source @ -No Did you review nursing and triage notes (agree or disagree)? Why? @ -I reviewed and agree with nursing and triage notes Were old charts reviewed (outside hosp., previous admission, EMS record, old EKG, old radiological studies, urgent care reports/EKG's, skilled nursing records)? Report findings @ -No old charts were reviewed Differential Diagnosis (chest pain, altered mental status, abdominal pain women, abdominal pain men, vaginal bleeding, weakness, fever, dyspnea, syncope, headache, dizziness, GI bleed, back pain, seizure, CVA, palpatations, mental health, musculoskeletal)? @ -Differential Abdominal Pain Men: Appendicitis, cholecystitis, diverticulosis, ischemic bowel, pancreatitis, he patitis, UTI, gastroenteritis, AAA, incarcerated hernia, bowel obstruction, constipation, inflammatory bowel, hepatitis, peptic ulcer disease, splenic infarction, perforated viscus, testicular torsion, this is not meant to be an all-inclusive list EKG interpreted by me (3pts min.). @ -none X-rays interpreted by me (1pt min.). @ -None done CT interpreted by me (1pt min.). @ -CT abdomen and pelvis with contrast showed acute uncomplicated sigmoid diverticulitis U/S interpreted by me (1pt. min.). @ -None done What testing was considered but not performed or refused? (CT, X-rays, U/S, labs)? Why? @ -None What meds were considered but not given or refused? Why? @ -Medication for pain management was considered but patient did not want anything at this time Did you discuss the management of the patient with other professionals (professionals i.e. DrMalka, PA, OVEN ROASTER, lab, RT, psych nurse, drug abuse social worker, marketing financial analyst, teacher, operations officer, showcase maker)? Give summary @ -No Was smoking cessation discussed for >3mins.? @ -No Was critical care preformed (if so, how long)? @ -No Were there social determinants of health that impacted care today? How? (Homelessness, low income, unemployed, alcoholism, drug addiction, transportation, low edu. Level, literacy, decrease access to med. care, senior care, rehab)? @ -No Was there de-escalation of care discussed even if they declined (Discuss DNR or withdrawal of care, Hospice)? DNR status @ -No What co-morbidities impacted this encounter? (DM, HTN, Smoking, COPD, CAD, Cancer, CVA, ARF, Chemo, Hep., AIDS, mental health diagnosis, sleep apnea, morbid obesity)? @ -None Was patient admitted / discharged? Hospital course, mention meds given and route, prescriptions, significant lab abnormalities, going to OR and other pertinent info. @ -Discharged. Patient presented to the emergency department for chief complaint of lower abdominal pain x2 days. CBC showed WBC 5.6, hemoglobin 13.6, hematocrit 41.5; CMP showed sodium 136, potassium 4.1, creatinine 0.83; amylase 71, lipase 133. CT abdomen and pelvis showed acute uncomplicated sigmoid diverticulitis. Patient was given 1 L of normal saline. Patient is not having any systemic symptoms at this time. Patient is stable for discharge with outpatient treatment of diverticulitis with Augmentin. Case discussed with my attending, Dr. Alvarez Undiagnosed new problem with uncertain prognosis? @ -No Drug Therapy requiring intensive monitoring for toxicity (Heparin, Nitro, Insulin, Cardizem)? @ -No Were any procedures done? @ -No Diagnosis/symptom? @ -diverticulitis Acute, or Chronic, or Acute on Chronic? @ -acute Uncomplicated (without systemic symptoms) or Complicated (systemic symptoms)? @ -uncomplicated Side effects of treatment? @ -No Exacerbation, Progression, or Severe Exacerbation? @ -No Poses a threat to life or bodily function? How? (Chest pain, [place], [place], pneumonia, PE, COPD, DKA, ARF, appy, cholecystitis, CVA, Diverticulitis, Homicidal, Suicidal, threat to staff... and all critical care pts) @ -No - Lab Data Result diagrams: 09/03/22 15:20 09/03/22 15:20 Lab Results 09/03/22 09/03/22 Range/Units 15:20 15:20 WBC 5.6 (3.8-10.6) k/uL RBC 4.77 (4.30-5.90) m/uL Hgb 13.6 (13.0-17.5) gm/dL Hct 41.5 (39.0-53.0) % MCV 87.1 (80.0-100.0) fL MCH 28.5 (25.0-35.0) pg MCHC 32.7 (31.0-37.0) g/dL RDW 13.0 (11.5-15.5) % Plt Count 240 (150-450) k/uL MPV 7.7 Neutrophils % 66 % Lymphocytes % 22 % Monocytes % 8 % Eosinophils % 2 % Basophils % 0 % Neutrophils # 3.7 (1.3-7.7) k/uL Lymphocytes # 1.2 (1.0-4.8) k/uL Monocytes # 0.5 (0-1.0) k/uL Eosinophils # 0.1 (0-0.7) k/uL Basophils # 0.0 (0-0.2) k/uL Sodium 136 L (137-145) mmol/L Potassium 4.1 (3.5-5.1) mmol/L Chloride 103 (98-107) mmol/L Carbon Dioxide 24 (22-30) mmol/L Anion Gap 9 mmol/L BUN 12 (9-20) mg/dL Creatinine 0.83 (0.66-1.25) mg/dL Est GFR (CKD-EPI)AfAm >90 (>60 ml/min/1.73 sqM) Est GFR (CKD-EPI)NonAf >90 (>60 ml/min/1.73 sqM) Glucose 74 (74-99) mg/dL Calcium 8.8 (8.4-10.2) mg/dL Total Bilirubin 0.6 (0.2-1.3) mg/dL AST 22 (17-59) U/L ALT 16 (4-49) U/L Alkaline Phosphatase 78 (38-126) U/L Total Protein 7.1 (6.3-8.2) g/dL Albumin 4.1 (3.5-5.0) g/dL Amylase 71 (30-110) U/L Lipase 133 (23-300) U/L Disposition Clinical Impression: Diverticulitis Disposition: HOME SELF-CARE Condition: Stable Instructions (If sedation given, give patient instructions): Diverticulitis (ED) Additional Instructions: Take antibiotics to completion. Start liquid diet for 2-3 days and progress to low fiber foods as tolerated. May take Tylenol and Motrin as needed for pain. Follow up with your primary care provider and GI. Please return to the emergency department for new or worsening symptoms. Prescriptions: Amoxic-Pot Clav 875-125Mg [Augmentin 875-125] 1 tab PO Q8HR #15 tab Is patient prescribed a controlled substance at d/c from ED?: No Referrals: Greta Arizmendi MD [Primary Care Provider] - 1-2 days Trista Acosta MD [STAFF PHYSICIAN] - 1-2 days Time of Disposition: 17:08
[2022-09-03 17:41] VITALS: BP 137/97; PULSE 73; RESP 18
== END 2022-09-03 17:41 | disposition home or self-care (01) ==
LOC: EC 14:17
DX: K57.32 Diverticulitis of large intestine without perforation or abscess without bleeding (principal); Z91.011 Allergy to milk products
CPT/HCPCS: 36415; 80053; 82150; 83690; 85025; 74177; 99284; 96360; Q9967

== ENCOUNTER → 2023-02-03 | Outpatient (CLI) | payer BC ==
--- NOTE | 2023-02-03 18:09 | US ---
EXAMINATION TYPE: US scrotum with doppler. Grayscale and color Doppler Duplex imaging performed of chandan monteiro scrotum. DATE OF EXAM: 02/03/2023 COMPARISON: NONE CLINICAL INDICATION: Male, 58 years old with history of N49.2 INFLAMMATORY DISORDERS OF SCROTUM; EXAM MEASUREMENTS: TESTICLES: Right Testicle: 4.9 x 2.6 x 3.1 cm Left Testicle: 4.7 x 2.3 x 3.3 cm EPIDIDYMIS HEAD: Right Epididymis: 1.6 cm, 0.5cm cyst Left Epididymis: 1.7 cm, multiple cysts with largest measuring 2.5 x 1.7 x 2.1cm Doppler performed to assess for testicular vascularity; good bilateral color flow and waveforms are s een. There is no evidence of testicular torsion. Presence of hydroceles: right 3.5cm, left 4.4cm Presence of varicoceles: no IMPRESSION: 1. No evidence for acute process. 2. No evidence for intratesticular mass. 3. Appropriate arterial and venous spectral waveforms bilaterally. 4. Small bilateral hydroceles.
== END | disposition home or self-care (01) ==
LOC: RADUSWWP 15:47
PROVIDERS: ATTEND Family Medicine
DX: N49.2 Inflammatory disorders of scrotum (principal); N43.3 Hydrocele, unspecified
CPT/HCPCS: 76870; 93975

== ENCOUNTER → 2024-03-16 | Outpatient (CLI) | payer BC ==
--- NOTE | 2024-03-16 09:18 | XR ---
EXAMINATION TYPE: XR chest 2V DATE OF EXAM: 03/16/2024 9:00 AM COMPARISON: None CLINICAL INDICATION: Male, 59 years old with history of R06.02 SHORTNESS OF BREATH, , TECHNIQUE: Frontal and lateral views FINDINGS: The cardiomediastinal silhouette, aorta, and pulmonary vasculature are within normal limits. Mild hyp erinflation. Opacity at the left base has a strandy appearance. No pleural effusion. Possible tiny no dule at the periphery of the right upper lobe. Healed fracture deformity mid left clavicular shaft. IMPRESSION: 1. COPD. Opacity at the left base, suspected atelectasis given the strandy appearance. Otherwise, no acute process seen. 2. Either summation artifact or a tiny nodule along the periphery of the right upper lobe. Either 2-3 month follow-up radiograph versus nonemergent CT to further evaluate. [facility], Workstation: [id number] HealthSHIRLEY, 03/16/2024 9:15 AM
== END | disposition home or self-care (01) ==
LOC: RADXRMAIN 08:50
PROVIDERS: ATTEND Family Medicine
DX: J44.9 Chronic obstructive pulmonary disease, unspecified (principal); R91.8 Other nonspecific abnormal finding of lung field; R06.02 Shortness of breath
CPT/HCPCS: 71046

== ENCOUNTER → 2024-07-18 | Outpatient (CLI) | payer BC ==
--- NOTE | 2024-07-18 14:55 | CT ---
EXAMINATION TYPE: CT chest w con DATE OF EXAM: 07/18/2024 11:31 AM COMPARISON: 04/18/2024 CLINICAL INDICATION: Male, 59 years old with history of R91.1 SOLITARY PULMONARY NODULE; PHH, f/u nod ules TECHNIQUE: Multiple axial images were obtained through the chest. Sagittal and coronal reformats were created for review. MIP was performed on a separate workstation. Contrast used:100 ml mL of Isovue [address] DLP: 696 mGycm, Automated exposure control for dose reduction was used. FINDINGS: Heart normal size without pericardial effusion. No significant coronary artery calcifications are see n. Stable mild aneurysm aortic root at 4.2 cm. Both when configuration to the aortic arch. No thoracic lymphadenopathy by CT size criteria. Minimal emphysematous change. Some strandy atelectasis or scarring of the lower lungs. No consolidati on or pleural effusion. A few pulmonary nodules on the left measuring up to 6 mm remain unchanged for 3 months now. Best seen on axial MIP series. Image 9 and image 24. Redemonstrated a [id number] sized hiatal hernia. Low attenuation of the hepatic parenchyma sug gesting fatty infiltration. Tiny layering gallstones. No abnormal gallbladder distention. Bones: [facility] mid and lower thoracic spine. IMPRESSION: 1. COPD with minimal emphysema and similar strandy scarring/atelectasis at the lung bases. 2. A few pulmonary nodules redemonstrated and on the left measuring up to 6 mm, unchanged for 6 month s, favoring a benign etiology. An additional one-year follow-up can be performed per Fleischner guide lines. 3. Redemonstrated mild aneurysm aortic root at 4.2 cm. 4. Small to moderate-sized hiatal hernia. Layering gravel in the gallbladder. [facility], , 07/18/2024 2:53 PM
== END | disposition home or self-care (01) ==
LOC: RADCTMAIN 10:59
PROVIDERS: ATTEND Family Medicine
DX: R91.1 Solitary pulmonary nodule (principal); K44.9 Diaphragmatic hernia without obstruction or gangrene; J44.9 Chronic obstructive pulmonary disease, unspecified; J43.9 Emphysema, unspecified; I71.9 Aortic aneurysm of unspecified site, without rupture; R91.8 Other nonspecific abnormal finding of lung field
CPT/HCPCS: 71260; Q9967